=== PATIENT | female | born 1955 | race Caucasian/White ===

== ENCOUNTER 2016-11-23 14:14 | Emergency (ER) | payer OTHER ==
[~2016-11-23] VITALS: Ht 152.4 cm; Wt 81.1 kg
[~2016-11-23 14:14] MED LIST: IBUP-1542 PO; ROSU5TAB5 PO
[2016-11-23 14:23] VITALS: Ht 152.4 cm; Wt 81.1 kg
[2016-11-23] MEDS ORDERED: IBUPROFEN 600 MG TAB PO ONE (16:30)
[2016-11-23] MEDS ORDERED: FLUORESCEIN STRIP LEFT EYE ONE (16:30)
[2016-11-23] MEDS ORDERED: TETRACAINE 0.5% 4 ML OPH LEFT EYE ONE (16:30)
--- NOTE | 2016-11-23 17:44 | RADRPT ---
PROCEDURE: US Soft Tissue. CLINICAL INDICATION: Left eye pain. TECHNIQUE: Targeted sonographic imaging of the left orbit was performed. COMPARISON: None. FINDINGS: The uptake lobe is normal in contour. The structures of the anterior segment of the optic globe are unremarkable. The vitreous is anechoic. There are no displaced membranes into the vitreous. Optic ne rve sheath diameter is approximately 3 mm, which is within the range of normal. IMPRESSION: Unremarkable left orbital ultrasound. RPTAT: HLST .Anisha Campbell MD, Date Time Electronically viewed and signed by .Anisha Campbell MD, on 11/23/2016 17:44 .T/
[2016-11-23] MEDS ORDERED: IBUP-1542 PO (17:52)
[2016-11-23] MEDS ORDERED: CPR3OO3.5 LEFT EYE (17:52)
[2016-11-23 18:43] VITALS: BP 128/74; PULSE 81; RESP 16; TEMP 98.5
--- NOTE | 2016-11-23 21:53 | ERD ---
ER Documentation Chief Complaint Date/Time DATE: 11/23/16 TIME: 21:49 Chief Complaint left eye pain x 1 week HPI This patient is a 61-year-old female presenting to the emergency department with complaints of intermittent left eye for the past week. Symptoms are worsening. She has difficulty opening her eye. Associated symptoms include photophobia. She does wear contacts but has not worn them for the past 2 days. She denies fevers, chills, or significant vision changes. ROS All systems reviewed and are negative except as per history of present illness. Medications Home Meds Active Scripts Ibuprofen* (Motrin*) 600 Mg Tab, 600 MG PO Q6, #30 TAB Prov:SILVIA RAE PA-C 11/23/16 Ciprofloxacin Opht* (Ciloxan*) 0.3%-3.5 Opht Oint, 1 APPLIC LEFT EYE TID for 7 Days, #1 BOTTLE Prov:SILVIA RAE PA-C 11/23/16 Ibuprofen* (Motrin*) 600 Mg Tab, 600 MG PO Q6H Y for PAIN AND OR ELEVATED TEMP, #30 TAB Prov:LORE CAMP MD 05/25/15 Reported Medications Rosuvastatin Calcium* (Crestor*) Unknown Strength Tablet, PO QHS, #30 TAB 05/25/15 Allergies Allergies: Coded Allergies: No Known Allergy (Unverified , 05/25/15) PMhx/Soc Hx Alcohol Use: No Hx Substance Use: No Smoking Status: Never smoker Physical Exam Vitals Vital Signs Date Time Temp Pulse Resp B/P Pulse Ox O2 Delivery O2 Flow Rate FiO2 11/23/16 18:43 98.5 81 16 128/74 99 11/23/16 14:23 98.1 77 20 133/73 99 Physical Exam Const: Nontoxic, well-appearing female in no acute distress. Head: Atraumatic Eyes: There is conjunctival injection noted to the left eye. ENT: Normal External Ears, Nose and Mouth. Neck: Full range of motion..~ No meningismus. Resp: No signs of respiratory distress. Skin: No petechiae or rashes Back: No midline or flank tenderness Ext: No cyanosis, or edema Neur: Awake and alert Psych: Normal Mood and Affect Results 24 hrs Current Medications Medications (Trade) Dose Ordered Sig/Isabelle Route PRN Reason Start Time Stop Time Status Last Admin Dose Admin Ibuprofen (Motrin) 600 mg ONCE ONCE PO 11/23/16 16:30 11/23/16 16:31 DC 11/23/16 16:34 Fluorescein Sodium (Ntsea-Z-Yfjwe) 1 strip ONCE ONCE LEFT EYE 11/23/16 16:30 11/23/16 16:31 DC Tetracaine HCl (Tetracaine 0.5% Steri-Unit Юлия) 1 drop ONCE ONCE LEFT EYE 11/23/16 16:30 11/23/16 16:31 DC Procedures/MDM 61-year-old female presented to the emergency department with complaints of left eye pain intermittently for the past 2 weeks. Blandon lamp examination with fluorescein stain was negative for dendritic ulcers or corneal ulcers or abrasions. There is no foreign body noted. Ultrasound was negative for sign of retinal detachment. Duy-Pen readings were within normal limits and I have low suspicion for acute angle-closure glaucoma. The patient's symptoms may be secondary to conjunctivitis with bacterial etiology and she was advised to not wear her contacts for at least 7 days. She was prescribed ciprofloxacin ophthalmic drops as an outpatient. She is to have close follow-up with her primary care physician and at the [facility]. She was given information to do so. The patient is to return to the emergency department immediately for any new or worsening symptoms. Eye Exam w/ Wood's lamp: Visual Acuity: 20/30 in the left eye. Visual Werner: Intact in all four quadrants bilaterally Lac ducts/glands: No swelling Lids w/ evertion: Normal, no foreign body Conj/[place]: Clear, negative Fluorescein/Isaiah's Anterior Chamber: Clear Tonopen readings: 20mmHg in the Left eye Retina exam: No obvious abnormality PROCEDURE: US Soft Tissue. CLINICAL INDICATION: Left eye pain. TECHNIQUE: Targeted sonographic imaging of the left orbit was performed. COMPARISON: None. FINDINGS: The uptake lobe is normal in contour. The structures of the anterior segment of the optic globe are unremarkable. The vitreous is anechoic. There are no displaced membranes into the vitreous. Optic nerve sheath diameter is approximately 3 mm, which is within the range of normal. IMPRESSION: Unremarkable left orbital ultrasound. RPTAT: HLST .Anisha Shannan, MD, MD Date Time Electronically viewed and signed by .Anisha Campbell MD, MD on 11/23/2016 17:44 .T/ CC: SILVIA RAE PA-C Diagnosis: Primary Impression: Conjunctivitis Conjunctivitis type: acute Acute conjunctivitis type: unspecified Laterality: left Qualified Code: H10.32 - Acute conjunctivitis of left eye, unspecified acute conjunctivitis type Condition: Fair Patient Instructions: Conjunctivitis Caused by Infection Ref[facility] Usted se luna hecho un examen mdico de control que le indica que no est en yoel condicin que requiera tratamiento urgente en el Departamento de Emergencia. Un estudio ms profundo y el tratamiento de cain condicin pueden esperar sin ningn riesgo hasta que usted sea atendida/o en el consultorio de cain mdico o yoel cl arina. Es responsabilidad suya arreglar yoel kennedy para el seguimiento del barb. MANEJO DE CONDICIONES NO URGENTES EN EL FUTURO 1) Si usted tiene un mdico de atencin primaria: Usted debera llamar a cain mdico de atencin primaria antes de venir al departamento de emergencia. Despus de las horas de consultorio, cain doctor o cain asociado/a est disponible por telfono. El mdico o enfermero de génesis en el servicio telefnico puede asesorarle por alex medio para atender el problema, o barb contrario se puede programar yoel kennedy. 2) Si usted no tiene un mdico de atencin primaria: Llame al mdico o clnica de referencia que aparece abajo toña las horas de consultorio para hacer yoel kennedy para que le vean. CLINICAS: [facility] [phone] [id number] [facility] [place] [id number] [phone] [facility] [phone] [facility] [phone] [facility] [phone] [facility] [phone] [address] [facility] Hours: Mon - Fri 9:00 AM - 5:00 PM Additional Instructions: No mas mejor en 2-3 millan, regresar. Mas peor en 24 horas, regresear rapidamente. Ir a doctor primario in 5-7 millan. Usar instrucciones cuando marcelo medicamento. SILVIA RAE PA-C Nov 23, 2016 21:53
== END 2016-11-23 18:43 | disposition home or self-care (01) ==
LOC: FTE 14:14
DX: H10.32 Unspecified acute conjunctivitis, left eye (principal)
CPT/HCPCS: 76536; Z7502; Z7610